=== PATIENT | female | born 1945 ===

== ENCOUNTER 2018-11-16 21:55 | Emergency (ER) | payer OTHER ==
[~2018-11-16] VITALS: Ht 154.9 cm; Wt 45.4 kg
[~2018-11-16 21:55] MED LIST: ATACAND4 MG
[2018-11-16] MEDS ORDERED: NORVASC2.5 M1 (22:07)
[2018-11-16] MEDS ORDERED: ZYPREXA5 MG (22:07)
[2018-11-16] MEDS ORDERED: XARELTO20 MG (22:08)
[2018-11-16] MEDS ORDERED: LEVOTHYROXINE25 MCG (22:09)
[2018-11-16] MEDS ORDERED: MEMANTINE HCL10 MG (22:09)
[2018-11-16] MEDS ORDERED: ATORVASTATIN CA10 MG (22:09)
[2018-11-16] MEDS ORDERED: ZOLOFT100 MG (22:10)
[2018-11-16] MEDS ORDERED: NEURONTIN300 MG (22:10)
[2018-11-16] MEDS ORDERED: EXELON1 EACH (22:11)
== END 2018-11-17 09:55 | disposition home or self-care (01) ==
LOC: ER 21:55
DX: R10.13 Epigastric pain (principal)

== ENCOUNTER 2018-12-24 17:56 | Emergency (ER) | payer OTHER ==
[~2018-12-24] VITALS: Ht 157.5 cm; Wt 44.0 kg
[~2018-12-24 17:56] MED LIST changes: +ATORVASTATIN CA10 MG; +EXELON1 EACH; +LEVOTHYROXINE25 MCG; +MEMANTINE HCL10 MG; +NEURONTIN300 MG; +NORVASC2.5 M1; +XARELTO20 MG; +ZOLOFT100 MG; +ZYPREXA5 MG
[2018-12-25] MEDS ORDERED: MIRALAX510 GM PO (02:38)
== END 2018-12-25 02:43 ==
LOC: ER 17:56
DX: K59.09 Other constipation (principal)